=== PATIENT | male | born 1955 | race Caucasian/White ===

== ENCOUNTER 2024-04-22 13:27 | Inpatient (IN) | payer MEDICARE ==
[2024-04-22] MEDS ORDERED: Sodium Chloride 0.9% 100 ML ONE (13:58)
[2024-04-22] MEDS ORDERED: Cefepime 2 GM VIAL ONE (13:58)
[2024-04-22 14:14] LABS: #Basophils Less than 0.03 10x3/uL (0.0-0.2); #Eosinphils Less than 0.03 10x3/uL (0.0-0.7); %Basophils 0.3 % (0.0-1.0); %Lymphocytes 2.1 % (21.0-51.0); %Neutrophils 94.3 % (42.0-75.0); Hematocrit 44.3 % (42.0-52.0); Hemoglobin 15.3 g/dL (14.0-18.0); Mean Corpuscular HGB CONC 34.5 g/dL (32.0-36.0); Mean Corpuscular Hemoglobin 30.8 pg (27.0-31.0); Mean Corpuscular Volume 89.1 fL (78.0-98.0); Mean Platelet Volume 10.6 fL (7.4-10.4); Platelet Count 137 10x3/uL (130-400); RBC Distribution Width 12.6 % (11.5-14.5); Red Blood Cell (RBC) Count 4.97 mill/uL (4.70-6.10)
[2024-04-22 14:22] LABS: ALT (SGPT) 30 U/L (8-55); AST (SGOT) 29 U/L (5-34); Acetaminophen Less than 10 mcg/mL (10.0-30.0); Albumin 3.3 g/dL (3.4-4.8); Alcohol Less than 10.0 mg/dL (Less than 10); Alkaline Phosphatase 62 U/L (40-110); Anion Gap 18 mmol/L (10-20); BUN (Urea Nitrogen) 10 mg/dL (8.4-25.7); Bilirubin, Total 1.3 mg/dL (0.2-1.2); Calc. Creatinine Clearance 0 mL/min (70-130); Calcium 8.2 mg/dL (7.8-10.44); Carbon Dioxide 21 mmol/L (23-31); Chloride 100 mmol/L (98-107); Estimated GFR 96; Globulin 2.9 g/dL (2.4-3.5); Glucose 308 mg/dL (80-115); Potassium 3.2 mmol/L (3.5-5.1); Protein, Total 6.2 g/dL (5.8-8.1); Salicylate Less than 8.0 mg/dL (15.0-30.0); Sodium 136 mmol/L (136-145)
[2024-04-22 14:26] LABS: Troponin I 0.177 ng/mL (< 0.028)
[2024-04-22 14:56] LABS: Actual Bicarbonate (HCO3a) 20.9 mEq/L (22-28); Analyzer IN Cardio ER; Base Excess (BEa) -2.9 mEq/L (-2.0 to +3.0); CO2 Tension 33.9 mmHg (35.0-45.0); Calcium, Ionized (arterial) 1.07 mmol/L (1.12-1.30); Carboxyhemoglobin (COHb) 0.8 gm% (0.0-3.0); Hematocrit-ABG 46 % (42.0-52.0); Hemoglobin (Hb) 15.8 g/dL (14.0-18.0); O2 Tension (PaO2), arterial 84.1 mmHg (> 70.0); Potassium - ABG Lab 3.53 mmol/L (3.70-5.30); pH, Arterial 7.407 (7.35-7.45)
[2024-04-22 14:57] LABS: Puncture Site RRA
[2024-04-22 14:58] LABS: ALV-art Gradient 586.525 mmHg (0-20)
[2024-04-22] MEDS ORDERED: Senokot S 8.6-50 MG TAB PO PRN (14:58)
[2024-04-22] MEDS ORDERED: Ondansetron PF 4 MG/2 ML Vial IVP PRN (14:58)
[2024-04-22] MEDS ORDERED: Benzonatate 100 MG CAP PO PRN (15:06)
[2024-04-22] MEDS: Vancomycin (BATCH) 2 GM in Premix 1 BAG IVPB SCH (16:09)
[2024-04-22] MEDS: Albumin 25% 25 GM (100 mL) BOT IVPB SCH (17:18)
[2024-04-22 17:41] LABS: Critical Call Chem Troponin I NUR.BM7 @1741; Troponin I 2.396 ng/mL (< 0.028)
[2024-04-22] MEDS: Furosemide 40 MG (4 mL) VIAL SLOW IVP SCH (18:07)
[2024-04-22 18:12] LABS: Bacteria/HPF None Seen HPF (None Seen); Bilirubin Negative (Negative); Blood, Urine Trace (Negative); CAUTI Indications for Culture Alt mental st,lethar; Clarity Clear (Clear); Glucose, Urine (Dipstick) Greater than 1000 mg/dL (Negative); Ketone, Urine 60 mg/dL (Negative); Leukocyte Negative Leu/uL (Negative); Nitrite Negative (Negative); Protein, Urine (Dipstick) 50 mg/dL (Neg-Trace); RBC/HPF 0-3 HPF (0-3); Squamous Epithelial 0-3 HPF (0-3); Urobilinogen Normal mg/dL (Less than 2); WBC/HPF 0-3 HPF (0-3)
[2024-04-22] MEDS: NO SC SCH (18:13)
[2024-04-22] MEDS ORDERED: Dextrose 5% in Water 1,000 ML IV PRN (18:14)
[2024-04-22] MEDS ORDERED: Dextrose 50% Abboject 50 ML SYRINGE SLOW IVP PRN (18:14)
[2024-04-22] MEDS ORDERED: Glucagon 1 MG/ML KIT IM PRN (18:14)
[2024-04-22 18:15] LABS: Urine Culture Reflex No No
[2024-04-22 18:23] LABS: Legionella Urinary Ag Negative (Negative); Strep pneumo Urine Ag NEGATIVE (NEGATIVE)
[2024-04-22 20:43] LABS: Critical Call Chem Troponin I NUR.LIZ @2043; Troponin I 3.716 ng/mL (< 0.028)
[2024-04-22] MEDS: Acetaminophen 650 MG Suppository PR PRN (21:18)
[2024-04-22] MEDS: Famotidine/PF 20 mg/2ml Vial SLOW IVP SCH (21:18)
[2024-04-22] MEDS: Atorvastatin Calcium 20 MG TAB PO SCH (21:19)
[2024-04-23] MEDS: Vancomycin (BATCH) 1.25 GM in Premix 1 BAG IVPB SCH (00:27)
[2024-04-23] MEDS: Cefepime 2 GM in Sodium Chloride 0.9% 100 ML IVPB SCH (01:34)
[2024-04-23 06:26] LABS: Vancomycin, Random 19.3 ug/mL (See Comment)
[2024-04-23 06:31] LABS: ALT (SGPT) 24 U/L (8-55); AST (SGOT) 30 U/L (5-34); Albumin 3.5 g/dL (3.4-4.8); Alkaline Phosphatase 40 U/L (40-110); Anion Gap 21 mmol/L (10-20); BUN (Urea Nitrogen) 15 mg/dL (8.4-25.7); Bilirubin, Total 1.3 mg/dL (0.2-1.2); Calc. Creatinine Clearance 94 mL/min (70-130); Calcium 8.3 mg/dL (7.8-10.44); Carbon Dioxide 22 mmol/L (23-31); Chloride 102 mmol/L (98-107); Estimated GFR 82; Globulin 2.8 g/dL (2.4-3.5); Glucose 349 mg/dL (80-115); Potassium 3.5 mmol/L (3.5-5.1); Protein, Total 6.3 g/dL (5.8-8.1); Sodium 141 mmol/L (136-145)
[2024-04-23 06:38] LABS: Band 13 % (5-11); Dohle Bodies SLIGHT; Lymphocytes 2 % (21-51); Monocytes 2 % (0-10); Neutrophil 83 % (42-75); Platelet Adequacy Comment Platelets Decreased; Toxic Granulation SLIGHT; Vacuoles SLIGHT
[2024-04-23 06:39] LABS: Hematocrit 40.7 % (42.0-52.0); Hemoglobin 13.8 g/dL (14.0-18.0); Mean Corpuscular HGB CONC 33.9 g/dL (32.0-36.0); Mean Corpuscular Hemoglobin 31.4 pg (27.0-31.0); Mean Corpuscular Volume 92.7 fL (78.0-98.0); Mean Platelet Volume 10.7 fL (7.4-10.4); Platelet Count 119 10x3/uL (130-400); Red Blood Cell (RBC) Count 4.39 mill/uL (4.70-6.10)
[2024-04-23] MEDS: HumaLOG 300 UNITS/3 ML VIAL SC PRN ×2 (07:20→22:51)
[2024-04-23] MEDS ORDERED: Enoxaparin 40 MG (0.4 mL) SYRINGE SC SCH (09:00)
[2024-04-23] MEDS: Amlodipine 10 MG TAB PO SCH (09:14)
[2024-04-23] MEDS: Enoxaparin 100 MG (1 mL) SYRINGE SC SCH (09:15)
[2024-04-23] MEDS ORDERED: Furosemide 40 MG TAB PO PRN (12:56)
[2024-04-23] MEDS: Bisoprolol Fumarate/HCTZ 10 mg/6.25 mg Tablet PO SCH (18:05)
[2024-04-23] MEDS: hydrALAZINE 20 MG/ML VIAL SLOW IVP PRN (19:01)
[2024-04-23] MEDS: Morphine 4 MG/ML VIAL SLOW IVP PRN (20:06)
[2024-04-23] MEDS: Insulin Glargine 30 UNITS/0.3 ML VIAL SC SCH (23:01)
[2024-04-24] MEDS: Glimepiride 4 MG TAB PO SCH (08:41)
[2024-04-24 14:52] LABS: Troponin I 1.805 ng/mL (< 0.028)
[2024-04-24] MEDS: HumaLOG 300 UNITS/3 ML VIAL SC PRN (16:35)
[2024-04-24] MEDS: hydrALAZINE 25 MG TAB PO SCH (20:21)
[2024-04-25 06:43] LABS: Anion Gap 16 mmol/L (10-20); BUN (Urea Nitrogen) 20 mg/dL (8.4-25.7); Calc. Creatinine Clearance 118 mL/min (70-130); Calcium 8.6 mg/dL (7.8-10.44); Carbon Dioxide 27 mmol/L (23-31); Chloride 102 mmol/L (98-107); Estimated GFR 96; Glucose 216 mg/dL (80-115); Potassium 3.6 mmol/L (3.5-5.1); Sodium 141 mmol/L (136-145); Vancomycin, Random 17.3 ug/mL (See Comment)
[2024-04-25 06:52] LABS: #Basophils 0.03 10x3/uL (0.0-0.2); %Basophils 0.3 % (0.0-1.0); %Eosinophils 1.1 % (0.0-10.0); %Lymphocytes 11.1 % (21.0-51.0); %Neutrophils 69.7 % (42.0-75.0); Critical Call Chem Troponin I RESULT DECREASING; Hematocrit 39.5 % (42.0-52.0); Hemoglobin 13.4 g/dL (14.0-18.0); Mean Corpuscular HGB CONC 33.9 g/dL (32.0-36.0); Mean Corpuscular Hemoglobin 31.1 pg (27.0-31.0); Mean Corpuscular Volume 91.6 fL (78.0-98.0); Platelet Count 131 10x3/uL (130-400); RBC Distribution Width 12.8 % (11.5-14.5); Red Blood Cell (RBC) Count 4.31 mill/uL (4.70-6.10); Troponin I 1.119 ng/mL (< 0.028)
[2024-04-25] MEDS: Polyethylene Glycol 3350 17 GM Packet PO SCH (08:10)
[2024-04-25] MEDS ORDERED: Benzonatate 100 MG CAP PO SCH (10:15)
[2024-04-25] MEDS ORDERED: Vancomycin (BATCH) 1.75 GM in Premix 1 BAG IVPB SCH (12:00)
[2024-04-25] MEDS: Insulin Glargine 30 UNITS/0.3 ML VIAL SC SCH (22:04)
[2024-04-25] MEDS: Lactated Ringer's 1,000 ML IV SCH (22:07)
[2024-04-26 05:52] LABS: #Basophils Less than 0.03 10x3/uL (0.0-0.2); %Basophils 0.3 % (0.0-1.0); %Eosinophils 2.4 % (0.0-10.0); %Monocytes 8.2 % (0.0-10.0); %Neutrophils 77.2 % (42.0-75.0); Hematocrit 34.7 % (42.0-52.0); Mean Corpuscular HGB CONC 34.6 g/dL (32.0-36.0); Mean Corpuscular Hemoglobin 31.9 pg (27.0-31.0); Mean Corpuscular Volume 92.3 fL (78.0-98.0); Platelet Count 146 10x3/uL (130-400); RBC Distribution Width 12.6 % (11.5-14.5); Red Blood Cell (RBC) Count 3.76 mill/uL (4.70-6.10)
[2024-04-26 06:03] LABS: Anion Gap 14 mmol/L (10-20); BUN (Urea Nitrogen) 18 mg/dL (8.4-25.7); Calc. Creatinine Clearance 127 mL/min (70-130); Calcium 8.8 mg/dL (7.8-10.44); Carbon Dioxide 28 mmol/L (23-31); Chloride 99 mmol/L (98-107); Estimated GFR 97; Glucose 207 mg/dL (80-115); Sodium 138 mmol/L (136-145)
[2024-04-26] MEDS: Insulin Glargine 30 UNITS/0.3 ML VIAL SC SCH (09:12)
[2024-04-27 04:19] LABS: #Basophils Less than 0.03 10x3/uL (0.0-0.2); %Basophils 0.2 % (0.0-1.0); %Eosinophils 0.6 % (0.0-10.0); %Monocytes 8.5 % (0.0-10.0); %Neutrophils 83.1 % (42.0-75.0); Hematocrit 36.7 % (42.0-52.0); Hemoglobin 12.6 g/dL (14.0-18.0); Mean Corpuscular HGB CONC 34.3 g/dL (32.0-36.0); Mean Corpuscular Hemoglobin 31.1 pg (27.0-31.0); Mean Corpuscular Volume 90.6 fL (78.0-98.0); Mean Platelet Volume 10.6 fL (7.4-10.4); Platelet Count 179 10x3/uL (130-400); RBC Distribution Width 12.3 % (11.5-14.5); Red Blood Cell (RBC) Count 4.05 mill/uL (4.70-6.10)
[2024-04-27 04:57] LABS: Anion Gap 17 mmol/L (10-20); BUN (Urea Nitrogen) 18 mg/dL (8.4-25.7); Calc. Creatinine Clearance 125 mL/min (70-130); Calcium 9.5 mg/dL (7.8-10.44); Carbon Dioxide 27 mmol/L (23-31); Chloride 99 mmol/L (98-107); Estimated GFR 97; Glucose 179 mg/dL (80-115); Sodium 140 mmol/L (136-145)
[2024-04-27 05:09] VITALS: BMI 28.6
[2024-04-27] MEDS: Potassium Chloride 20 MEQ TAB PO SCH (11:31)
[2024-04-29 04:01] LABS: #Basophils 0.05 10x3/uL (0.0-0.2); %Basophils 0.7 % (0.0-1.0); %Eosinophils 5.8 % (0.0-10.0); %Monocytes 9.7 % (0.0-10.0); %Neutrophils 63.8 % (42.0-75.0); Hematocrit 37.3 % (42.0-52.0); Hemoglobin 12.8 g/dL (14.0-18.0); Mean Corpuscular HGB CONC 34.3 g/dL (32.0-36.0); Mean Corpuscular Hemoglobin 30.7 pg (27.0-31.0); Mean Corpuscular Volume 89.4 fL (78.0-98.0); Mean Platelet Volume 10.6 fL (7.4-10.4); Platelet Count 241 10x3/uL (130-400); RBC Distribution Width 12.3 % (11.5-14.5); Red Blood Cell (RBC) Count 4.17 mill/uL (4.70-6.10)
[2024-04-29 04:39] LABS: ALT (SGPT) 118 U/L (8-55); AST (SGOT) 64 U/L (5-34); Albumin 2.4 g/dL (3.4-4.8); Alkaline Phosphatase 82 U/L (40-110); Anion Gap 14 mmol/L (10-20); BUN (Urea Nitrogen) 15 mg/dL (8.4-25.7); Bilirubin, Total 1.2 mg/dL (0.2-1.2); Calc. Creatinine Clearance 123 mL/min (70-130); Calcium 9.2 mg/dL (7.8-10.44); Carbon Dioxide 32 mmol/L (23-31); Chloride 96 mmol/L (98-107); Estimated GFR 97; Globulin 3.5 g/dL (2.4-3.5); Glucose 130 mg/dL (80-115); Protein, Total 5.9 g/dL (5.8-8.1); Sodium 139 mmol/L (136-145)
[2024-04-29] MEDS ORDERED: Electrolyte Replacement Protocol FS PRN (11:30)
[2024-04-29] MEDS: Potassium Chloride 20 MEQ TAB PO SCH (11:53)
[2024-04-29] MEDS: Furosemide 40 MG (4 mL) VIAL SLOW IVP SCH (11:53)
[2024-04-29] MEDS: Electrolyte Replacement Protocol 1 EACH FS ONE (12:18)
[2024-04-29 16:28] LABS: Potassium 3.8 mmol/L (3.5-5.1)
[2024-04-29] MEDS: Acetaminophen 325 MG TAB PO PRN (17:26)
[2024-04-30 06:10] LABS: Anion Gap 15 mmol/L (10-20); BUN (Urea Nitrogen) 16 mg/dL (8.4-25.7); Calc. Creatinine Clearance 131 mL/min (70-130); Calcium 9.5 mg/dL (7.8-10.44); Carbon Dioxide 30 mmol/L (23-31); Chloride 100 mmol/L (98-107); Estimated GFR 99; Glucose 118 mg/dL (80-115); Potassium 3.4 mmol/L (3.5-5.1); Sodium 142 mmol/L (136-145)
[2024-04-30] MEDS: Potassium Chloride 20 MEQ TAB PO SCH (09:03)
[2024-05-01 15:19] VITALS: BMI 28.5
[2024-05-02] MEDS: Cefdinir 300 MG CAP PO SCH (09:50)
[2024-05-03 05:12] LABS: #Basophils 0.06 10x3/uL (0.0-0.2); %Basophils 0.6 % (0.0-1.0); %Eosinophils 3.3 % (0.0-10.0); %Lymphocytes 15.3 % (21.0-51.0); %Monocytes 8.2 % (0.0-10.0); %Neutrophils 70.9 % (42.0-75.0); Hematocrit 41.3 % (42.0-52.0); Hemoglobin 13.6 g/dL (14.0-18.0); Mean Corpuscular HGB CONC 32.9 g/dL (32.0-36.0); Mean Corpuscular Hemoglobin 30.6 pg (27.0-31.0); Mean Platelet Volume 9.5 fL (7.4-10.4); Platelet Count 350 10x3/uL (130-400); RBC Distribution Width 12.2 % (11.5-14.5); Red Blood Cell (RBC) Count 4.44 mill/uL (4.70-6.10)
[2024-05-03 05:33] LABS: Anion Gap 17 mmol/L (10-20); BUN (Urea Nitrogen) 16 mg/dL (8.4-25.7); Calc. Creatinine Clearance 124 mL/min (70-130); Calcium 9.4 mg/dL (7.8-10.44); Carbon Dioxide 28 mmol/L (23-31); Chloride 102 mmol/L (98-107); Estimated GFR 97; Glucose 144 mg/dL (80-115); Potassium 4.4 mmol/L (3.5-5.1); Sodium 143 mmol/L (136-145)
[2024-05-05 05:00] VITALS: BP 165/82; TEMP 97.2
== END 2024-05-04 21:35 | DRG 871 ==
LOC: ERS 13:27 → SUATTDRO 13:27 → IMCU/EMU 16:34 → 2NO 04-29 13:21
PROVIDERS: ADMIT Internal Medicine; ATTEND Internal Medicine
PROC: 5A09457 Assistance with Respiratory Ventilation, 24-96 Consecutive Hours, Continuous Positive Airway Pressure (ICD-10-PCS; principal; 2024-04-22)
PROC: 4A03XR1 Measurement of Arterial Saturation, Peripheral, External Approach (ICD-10-PCS; 2024-04-22)
DX: A41.9 Sepsis, unspecified organism (principal); I21.A1 Myocardial infarction type 2; J18.9 Pneumonia, unspecified organism; J96.01 Acute respiratory failure with hypoxia; I50.33 Acute on chronic diastolic (congestive) heart failure; G93.40 Encephalopathy, unspecified; I11.0 Hypertensive heart disease with heart failure; E87.6 Hypokalemia; E78.5 Hyperlipidemia, unspecified; E11.9 Type 2 diabetes mellitus without complications; R31.9 Hematuria, unspecified; Z79.899 Other long term (current) drug therapy; Z79.84 Long term (current) use of oral hypoglycemic drugs; Z79.4 Long term (current) use of insulin; R33.9 Retention of urine, unspecified
CPT/HCPCS: 36415; 36416; 36600; 70450; 71045; 80048; 80053; 80202; 80307; 81001; 82805; 83605; 83880; 84145; 84484; 85025; 86141; 87040; 87070; 87081; 87205; 87449; 87899; 93005; 93010; 93306; 94660; 96374; 96375; J0360; J0692; J1650; J1815; J1940; J2270; J3370; J3490; J7120; P9047; S0028